=== PATIENT | female | born 1965 | race Caucasian/White ===

== ENCOUNTER → 2018-01-31 | Outpatient (CLI) | payer OTHER | LOC: M.RAD 10:28 | DX: R05 Cough (principal); R06.02 Shortness of breath ==

== ENCOUNTER → 2018-09-20 | Outpatient (CLI) | payer OTHER ==
--- NOTE | 2018-09-20 16:29 | 2DMMODE ---
[place] [address] 2 D/M-MODE ECHOCARDIOGRAM Name: LENY CUELLAR Room: [facility]#: [id number] Admission: 09/20/18 Attend Phys: Bessy Doherty Discharge: Date of : 61 Date of Service: 09/20/18 1628 Report #: [id number] THIS REPORT FOR: //name// APPROVED REPORT Study performed: 09/20/2018 14:34:38 EXAM: Comprehensive 2D, Doppler, and color-flow Echocardiogram Patient Location: Out-Patient BSA: 2.10 HR: 94 bpm BP: 130/70 mmHg Other Information Study Quality: Fair Indications Dyspnea 2D Dimensions IVSd: 12.12 (7-11mm) LVOT Diam: 20.00 (18-24mm) LVDd: 39.61 mm PWd: 10.62 (7-11mm) Ascending Ao: 28.77 (22-36mm) LVDs: 27.80 (25-40mm) Aortic Root: 23.38 mm Volumes Left Atrial Volume (Systole) LA ESV Index: 6.40 mL/m2 Aortic Valve AoV Peak Richie.: 1.46 m/s AO Peak Gr.: 8.53 mmHg LVOT Max P.99 mmHg AO Mean Gr.: 4.41 mmHg LVOT Mean P.53 mmHg LVOT Max V: 1.12 m/s AO V2 VTI: 26.77 cm LVOT Mean V: 0.73 m/s ABIMAEL (VTI): 2.57 cm2 LVOT V1 VTI: 21.88 cm Mitral Valve E/A Ratio: 0.70 MV Decel. Time: 246.56 ms MV E Max Richie.: 0.65 m/s MV PHT: 71.50 ms MVA (PHT): 3.08 [place]2 [place] [address] 2 D/M-MODE ECHOCARDIOGRAM Name: ROJAS CUELLARZOE Mccracken Room: [facility]#: [id number] Admission: 09/20/18 Attend Phys: Bessy Doherty Discharge: Date of : 61 Date of Service: 09/20/18 1628 Report #: [id number] TDI E/Lateral E': 7.22 E/Medial E': 7.22 Medial E' Richie.: 0.09 m/s Lateral E' Richie.: 0.09 m/s Pulmonary Valve PV Peak Richie.: 1.03 m/s PV Peak Gr.: 4.27 mmHg Left Ventricle The left ventricle is normal size. There is normal LV segmental wall motion. There is normal left ventricular wall thickness. Left ventricular systolic function is normal. The left ventricular ejection fraction is within the normal range. LVEF is 55-60%. Grade I - abnormal relaxation pattern. Right Ventricle The right ventricle is normal size. The right ventricular systolic function is normal. Atria The left atrium size is normal. The right atrium size is normal. Aortic Valve The aortic valve is normal in structure. No aortic regurgitation is present. There is no aortic valvular stenosis. Mitral Valve The mitral valve is normal in structure. There is no mitral valve regurgitation noted. No evidence of mitral valve stenosis. Tricuspid Valve The tricuspid valve is normal in structure. There is no tricuspid valve regurgitation noted. Pulmonic Valve The pulmonary valve is normal in structure. There is no pulmonic valvular regurgitation. Great Vessels The aortic root is normal in size. IVC is normal in size and collapses >50% with inspiration. Pericardium There is no [place] [address] 2 D/M-MODE ECHOCARDIOGRAM Name: LENY CUELLAR Room: [facility]#: [id number] Admission: 09/20/18 Attend Phys: Bessy Doherty Discharge: Date of : 61 Date of Service: 09/20/18 1628 Report #: [id number] <Conclusion> The left ventricle is normal size. There is normal left ventricular wall thickness. Left ventricular systolic function is normal. The left ventricular ejection fraction is within the normal range. LVEF is 55-60%. Grade I - abnormal relaxation pattern. The right ventricle is normal size. The left atrium size is normal. The aortic valve is normal in structure. The mitral valve is normal in structure. The tricuspid valve is normal in structure. IVC is normal in size and collapses >50% with inspiration. There is no pericardial effusion. There is normal LV segmental wall motion. <ELECTRONICALLY SIGNED> By: Casey Elliott MD, [facility] 09/20/18 1628 1628 1628 Casey Elliott MD, FACC /INF
== END ==
LOC: M.CRD 09-12 10:54 → M.ULTRA 13:00
DX: I73.9 Peripheral vascular disease, unspecified (principal); R06.01 Orthopnea; R06.00 Dyspnea, unspecified

== ENCOUNTER → 2018-12-15 | Outpatient (CLI) | payer OTHER | LOC: M.MRI 12-06 13:07 | DX: Z12.31 Encounter for screening mammogram for malignant neoplasm of breast (principal); M47.26 Other spondylosis with radiculopathy, lumbar region; M17.0 Bilateral primary osteoarthritis of knee; M51.16 Intervertebral disc disorders with radiculopathy, lumbar region; M48.07 Spinal stenosis, lumbosacral region; M43.16 Spondylolisthesis, lumbar region; M51.27 Other intervertebral disc displacement, lumbosacral region ==

== ENCOUNTER → 2020-03-04 | Outpatient (CLI) | payer MEDICARE ==
[~2020-03-04] VITALS: Ht 160 cm; Wt 104.3 kg
[~2020-03-04] MED LIST: ASA81BEC PO; CYCLOBENZAPRINE10 MG PO; DULOXETINE HCL60 MG PO; FAMOTIDINE 20 M20 MG PO; FOLIC ACID1 MG PO; LEVOTHYROXINE100 MCG PO; METFORMIN HCL1000 MG PO; PREDNISONE 5 MG5 M1 PO; PREGABALIN75 MG PO; SIMVASTATIN40 MG PO; VERAPAMIL HCL120 MG PO; VICTOZA 3-0.6 MG/0.1 SUBQ; XELJANZ XR11 MG PO
[2020-03-04 10:57] LABS: ABSOLUTE BASOPHILS 0.1 thou/uL (0.0-0.2); ABSOLUTE EOSINOPHILS 0.2 thou/uL (0.0-0.7); ABSOLUTE LYMPHOCYTES 2.2 thou/uL (0.8-5.3); ABSOLUTE MONOCYTES 0.8 thou/uL (0.0-1.2); ABSOLUTE NEUTROPHILS 4.8 thou/uL (1.6-8.1); BASOPHILS 1.3 %; HEMATOCRIT 37.6 % (37.0-47.0); HEMOGLOBIN 12.4 gm/dL (12.0-15.0); LYMPHOCYTES 27.4 %; MCH 27.9 pg (26.0-34.0); MCHC 32.8 g/dL (28.0-37.0); MONOCYTES 9.9 %; MPV 9.4 fl. (7.2-11.1); NUCLEATED RBCS 0 /100WBC; PLATELET COUNT* 271 thou/uL (150-400); POLYS 58.4 %; RBC 4.43 mil/uL (4.20-5.00); RDW-CV 16.2 % (10.5-14.5); WBC 8.1 thou/uL (4.0-11.0)
[2020-03-04 11:07] LABS: APTT 24.8 Seconds (25.0-31.3); PROTIME 10.2 Seconds (9.20-11.50)
[2020-03-04 11:16] LABS: ALBUMIN 3.7 g/dL (3.4-5.0); CALCIUM 10.1 mg/dL (8.5-10.1); POTASSIUM 4.5 mmol/L (3.5-5.1); TOTAL BILIRUBIN 0.3 mg/dL (<0.1-1.0); TOTAL PROTEIN 6.8 g/dL (6.4-8.2)
[2020-03-04 12:00] LABS: ESR (SEDRATE) 10 mm/hr (0-30)
--- NOTE | 2020-03-04 16:31 | EKG ---
[place] [address] ELECTROCARDIOGRAM REPORT Name: LENY CUELLAR Room: [facility]#: [id number] Admission: Attend Phys: Bessy Hanson Discharge: Date of : 61 Date of Service: 03/04/20 1103 Report #: [id number] THIS REPORT FOR: //name// [facility] Test Date: 2020-03-04 Test Time: 11:03:40 Pat Name: LENY CUELLAR Department: Room: Gender: Crew Lead: : 1965 Requested By: Ashok Do Order Number: [id number] Brandt MD: Casey Elliott Measurements Intervals [place] Rate: 87 P: 53 [place]: 139 QRS: 35 QRSD: 90 T: 57 QT: 363 QTc: 437 Interpretive Statements Sinus rhythm Low voltage, precordial leads Compared to ECG 07/24/2007 07:35:27 Low QRS voltage now present Electronically Signed On 03-04-2020 16:31:37 CDT by Casey Elliott [email or web address] <ELECTRONICALLY SIGNED> By: Casey Elliott MD, [facility] 03/04/20 1631 1103 1103 Casey Elliott MD, [facility] /EPI
[2020-03-05 03:06] LABS: GLYCOHEMOGLOBIN (HGB A1C) 8.1 % (4.8-5.6)
== END ==
LOC: M.LAB 08:00 → M.PRE 03-07 10:39 → EDSTATUS 03-07 13:56
PROVIDERS: ATTEND Orthopaedic Surgery
DX: Z01.812 Encounter for preprocedural laboratory examination (principal); Z20.828 Contact with and (suspected) exposure to other viral communicable diseases; M17.11 Unilateral primary osteoarthritis, right knee

== ENCOUNTER 2020-05-12 15:49 | Observation (INO) | payer MEDICARE ==
[~2020-05-12] VITALS: Ht 160 cm; Wt 100.7 kg
[2020-06-20 06:45] VITALS: BP 128/78
[2020-06-20 11:57] VITALS: BP 151/81
[2020-06-20 15:42] VITALS: BP 102/54
[2020-06-20 19:45] VITALS: BP 105/73
[2020-06-21] VITALS (8 sets, daily range): BP systolic 116–141; BP diastolic 68–85
[2020-06-21 04:23] LABS: HEMATOCRIT 32.7 % (37.0-47.0); HEMOGLOBIN 10.2 gm/dL (12.0-15.0)
[2020-06-21] MEDS ORDERED: OXYCODONE HCL 55 MG PO (07:18)
[2020-06-21] MEDS ORDERED: ELIQUIS5 MG PO (07:18)
[2020-06-22 04:53] LABS: HEMATOCRIT 30.5 % (37.0-47.0); HEMOGLOBIN 9.5 gm/dL (12.0-15.0)
[2020-06-22 07:53] VITALS: BP 145/74
[2020-06-22 10:55] VITALS: BP 116/70
--- NOTE | 2020-06-22 11:02 | OP ---
[address] [address] OPERATIVE REPORT Name: LENY CUELLAR Room: [address] M.R.#: [id number] Admission: 06/20/20 Attend Phys: Bessy Pruitt Discharge: Date of : 61 Report #: [id number] THIS REPORT FOR: cc: Sha Mcbride Steve T. DO ~ Ashok Do DO DATE OF SERVICE: 06/20/2020 Roverto Mcmahon DO, dictating for Ashok Do DO PREOPERATIVE DIAGNOSIS: Right knee degenerative joint disease. POSTOPERATIVE DIAGNOSIS: Right knee degenerative joint disease. PROCEDURE PERFORMED: Right total knee arthroplasty. ORTHOPEDIC IMPLANTS: Иван Persona total knee arthroplasty system with the following sizes. A. Size 7 narrow CR femur. B. Size D natural tibia baseplate. C. Size 13-mm vitamin E medial congruent poly. D. Size 29-mm 3 peg patella. E. Two bags of Biomet bone cement. F. Arthrex 2.6 mm FiberTak x 2 with an Arthrex 2.9 mm PushLock anchor. SURGEON: Ashok Do DO ZIPPER MEASURER: Roverto Mcmahon DO, and Cl Hill DO ANESTHESIA: Spinal with regional nerve block by Anesthesia and local. ESTIMATED BLOOD LOSS: 100 mL. DRAINS: None. SPECIMENS: None. COMPLICATIONS: None. CONDITION: The patient is stable. DISPOSITION: PACU and then to Med/Surg floor. ANTIBIOTICS: A 2 grams Ancef IV piggyback prior to the procedure. Also, 1 gram of tranexamic [place] [address] OPERATIVE REPORT Name: LENY CUELLAR Room: [address] Niecy Yousif#: [id number] Admission: 06/20/20 Attend Phys: Bessy Pruitt Discharge: Date of : 61 Report #: [id number] TIME: 62 minutes at 300 mmHg. INDICATIONS: The patient is a very pleasant 54-year-old female, who had ongoing right knee pain and symptoms. She has been treated conservatively for degenerative joint disease, but these have failed. She is ready to proceed with right total knee arthroplasty. Discussed all the risks, benefits, indications, and complications associated with the surgery, including but not limited to infection, wound healing complications, neurovascular injury, need for repeat surgery, continued pain after surgery, periprosthetic fracture, hardware failure, DVT, PE, and organ damage, complications with anesthesia and other possibilities even . The patient demonstrated good understanding and wanted to proceed with surgery. FINDINGS: Intraoperative evaluation of the knee demonstrated advanced degenerative changes throughout all 3 compartments with eburnation of the bone ends and osteophytic lipping with a normal-appearing joint fluid. Synovitis was also present. DESCRIPTION OF PROCEDURE: I met with the patient in the preoperative suite and the correct right knee was marked. The patient was taken to the operating room and given spinal anesthetic. She was then positioned supine on a well-padded table and a well-padded tourniquet was applied to the right upper thigh. Right lower extremity was then sterilely prepped and draped in a standard fashion. At this point, a surgical timeout was completed, indicating correct patient, operative site and procedure performed and all in the room were in agreement and would like to proceed. Made the standard anterior midline incision with a 10 blade scalpel. Next, dissection was taken down to the level of the clot and capsule. With a new knife, a standard medial parapatellar arthrotomy was performed. Patella was everted and the knee was brought into flexion. Excess anterior menisci and Hoffa fat pad was removed. At this point, intramedullary drill was inserted. Next, intramedullary alignment guide was then placed and a distal cut was made at 6 degrees of valgus and 10 mm of resection. Next, the AP sizer was utilized and found to be a size 7. It was drilled in 3 degrees of external rotation and then the 4-in-1 cutting block was pinned into place. Anterior, posterior and chamfer cuts were made. I turned the attention to the tibia. An extramedullary tibial guide was positioned. It was pinned into place with the appropriate amount of slope and took a total of 12 mm from the high lateral side for resection. This provided full extension with a 10-mm spacer block with symmetric flexion and extension gaps. Next, the knee was brought into flexion again. The tibia was sized and found to be D. A trial tibia was placed and then trial femur was placed followed by a 10-mm trial spacer. This was brought through range of motion. There was a symmetric flexion and extension gaps and symmetric varus and valgus stress to the knee and trialled up to a size 13 poly, which gave the most stability. The patella [place] [address] OPERATIVE REPORT Name: LENY CUELLAR [address] [id number] Admission: 06/20/20 Attend Phys: Bessy Pruitt Discharge: Date of : 61 Report #: [id number] freehand fashion. It was then drilled and patellar trial tracked nicely. The femur was drilled. The proximal tibia underwent the reaming and cruciform punch in a standard fashion. At this point, the bone ends were thoroughly irrigated and lavaged with Pulsavac and then allowed to dry. The cement was mixed on the back table and the final implants were passed on the back table. Cemented the knee in the standard form starting with the tibia, followed by the femur and last with the patella. The final size 13 polyethylene liner was thrown and seated nicely with an audible click. The knee was brought into 45 degrees of flexion and allowed the cement to cure. The knee was also thoroughly irrigated. Prior to cementing, the posterior capsule was prepared with electrocautery to avoid any bleeding. A pericapsular injection was also injected a total of 60 mL of the orthopedic cocktail. While the cement was curing, there was a small insertional patellar tendon avulsion that was noticed. Repaired this with 2 Arthrex 2.6-mm FiberTak. These had stable fixation and then the sutures were passed through the tendon and tied down. The suture ends were then taken into an Arthrex 2.9 mm PushLock for a dual fixation. This PushLock seated nicely with good stability. The tourniquet was let down. There was good hemostasis with electrocautery. The capsule was closed with a #2 Vicryl in a dswvla-un-caeas fashion. The subcutaneous tissue was then irrigated and subQ tissue was closed with a 2-0 Vicryl and then a 3-0 Stratafix was used on the skin followed by Dermabond skin glue. Mepilex dressing was placed. Needle and sponge counts were correct x 2 at the end of procedure. The patient was then transferred to PACU in stable condition. ATTESTATION: Dr. Do was present throughout all critical aspects of the case. <ELECTRONICALLY SIGNED> By: Ashok Do DO 06/22/20 1102 1044 [id number] Do DO /nt
[2020-06-22 12:56] VITALS: BP 116/70
== END 2020-06-22 12:15 | disposition home or self-care (01) ==
LOC: M.PRE 15:49 → M.TBA 06-20 06:07 → M.PRE 06-20 11:07 → M.3W 06-20 12:07 → M.PRE 06-20 12:46 → M.3W 06-22 12:15
PROVIDERS: Orthopaedic Surgery; ADMIT Internal Medicine; ATTEND Internal Medicine
DX: M17.11 Unilateral primary osteoarthritis, right knee (principal); M17.12 Unilateral primary osteoarthritis, left knee; M06.9 Rheumatoid arthritis, unspecified; E03.9 Hypothyroidism, unspecified; F32.9 Major depressive disorder, single episode, unspecified; K21.9 Gastro-esophageal reflux disease without esophagitis; E66.9 Obesity, unspecified; I10 Essential (primary) hypertension; Z79.84 Long term (current) use of oral hypoglycemic drugs; Z79.899 Other long term (current) drug therapy; Z79.82 Long term (current) use of aspirin; Z87.891 Personal history of nicotine dependence

== ENCOUNTER → 2020-05-12 | Outpatient (CLI) | payer MEDICARE ==
[~2020-05-12] MED LIST changes: +XIGDUO XR 5 MG1 EAC1 PO
[2020-05-12 08:48] LABS: ABSOLUTE BASOPHILS 0.2 thou/uL (0.0-0.2); ABSOLUTE EOSINOPHILS 0.4 thou/uL (0.0-0.7); ABSOLUTE LYMPHOCYTES 1.9 thou/uL (0.8-5.3); ABSOLUTE MONOCYTES 0.8 thou/uL (0.0-1.2); ABSOLUTE NEUTROPHILS 4.6 thou/uL (1.6-8.1); EOSINOPHILS 4.7 %; HEMATOCRIT 38.9 % (37.0-47.0); HEMOGLOBIN 12.2 gm/dL (12.0-15.0); LYMPHOCYTES 24.4 %; MCH 26.1 pg (26.0-34.0); MCHC 31.3 g/dL (28.0-37.0); MCV 83.5 fL (80.0-100.0); MONOCYTES 10.3 %; MPV 8.9 fl. (7.2-11.1); NUCLEATED RBCS 0 /100WBC; PLATELET COUNT* 301 thou/uL (150-400); POLYS 58.6 %; RBC 4.66 mil/uL (4.20-5.00); WBC 7.9 thou/uL (4.0-11.0)
[2020-05-12 08:56] LABS: ALBUMIN 3.8 g/dL (3.4-5.0); CALCIUM 9.3 mg/dL (8.5-10.1); CREATININE 0.9 mg/dL (0.6-1.3); POTASSIUM 4.7 mmol/L (3.5-5.1); TOTAL BILIRUBIN 0.3 mg/dL (<0.1-1.0)
[2020-05-12 09:12] LABS: APTT 22.5 Seconds (25.0-31.3); INR 0.9; PROTIME 9.5 Seconds (9.20-11.50)
[2020-05-12 10:40] LABS: ESR (SEDRATE) 20 mm/hr (0-30)
== END ==
LOC: M.LAB 08:27
PROVIDERS: ATTEND Orthopaedic Surgery
DX: Z01.812 Encounter for preprocedural laboratory examination (principal); Z20.828 Contact with and (suspected) exposure to other viral communicable diseases; M17.11 Unilateral primary osteoarthritis, right knee

== ENCOUNTER → 2020-06-17 | Outpatient (CLI) | payer MEDICARE ==
[2020-06-17 09:24] LABS: ABSOLUTE BASOPHILS 0.1 thou/uL (0.0-0.2); ABSOLUTE EOSINOPHILS 0.3 thou/uL (0.0-0.7); ABSOLUTE LYMPHOCYTES 1.9 thou/uL (0.8-5.3); ABSOLUTE MONOCYTES 0.8 thou/uL (0.0-1.2); ABSOLUTE NEUTROPHILS 6.2 thou/uL (1.6-8.1); BASOPHILS 1.4 %; EOSINOPHILS 3.2 %; HEMATOCRIT 38.8 % (37.0-47.0); HEMOGLOBIN 12.3 gm/dL (12.0-15.0); LYMPHOCYTES 20.1 %; MCH 25.7 pg (26.0-34.0); MCHC 31.8 g/dL (28.0-37.0); MCV 80.8 fL (80.0-100.0); MONOCYTES 8.9 %; MPV 8.6 fl. (7.2-11.1); NUCLEATED RBCS 0 /100WBC; PLATELET COUNT* 292 thou/uL (150-400); POLYS 66.4 %; WBC 9.4 thou/uL (4.0-11.0)
[2020-06-17 09:42] LABS: ALBUMIN 3.7 g/dL (3.4-5.0); CALCIUM 8.6 mg/dL (8.5-10.1); POTASSIUM 4.6 mmol/L (3.5-5.1); TOTAL BILIRUBIN 0.3 mg/dL (<0.1-1.0); TOTAL PROTEIN 7.2 g/dL (6.4-8.2)
[2020-06-17 10:17] LABS: APTT 24.5 Seconds (25.0-31.3); PROTIME 9.8 Seconds (9.20-11.50)
[2020-06-17 10:19] LABS: INR < 0.9
[2020-06-17 11:06] LABS: ESR (SEDRATE) 18 mm/hr (0-30)
[2020-06-18 02:08] LABS: GLYCOHEMOGLOBIN (HGB A1C) 7.3 % (4.8-5.6)
== END ==
LOC: M.LAB 08:57
PROVIDERS: ATTEND Orthopaedic Surgery
DX: Z01.812 Encounter for preprocedural laboratory examination (principal); Z20.828 Contact with and (suspected) exposure to other viral communicable diseases

== ENCOUNTER → 2020-11-14 | Outpatient (CLI) | payer OTHER ==
[~2020-11-14] MED LIST changes: +ELIQUIS5 MG PO; +OXYCODONE HCL 55 MG PO
== END ==
LOC: M.RAD 10:38
DX: Z12.31 Encounter for screening mammogram for malignant neoplasm of breast (principal)